=== PATIENT | male | born 1955 | race Two or more races ===

== ENCOUNTER 2019-03-20 06:29 | Emergency (ER) | payer OTHER ==
[~2019-03-20] VITALS: Ht 180.3 cm; Wt 113.4 kg
[2019-03-20] MEDS ORDERED: TYLENOL-CODEINE1 TA1 PO (07:31)
== END 2019-03-20 07:41 | disposition home or self-care (01) ==
LOC: ER 06:29
DX: N20.0 Calculus of kidney (principal)